=== PATIENT | male | born 1970 | race Two or more races ===

== ENCOUNTER 2020-04-11 10:19 | Emergency (ER) | payer OTHER ==
[2020-04-11] MEDS ORDERED: DIPHTH,PERTUSS(ACELL),TET 0.5 ML DISP.SYRIN IM ONE ×2 (10:42→11:13)
[2020-04-11 11:09] VITALS: BP 191/92; PULSE 55; TEMP 97.8; BMI 57.6
== END 2020-04-11 11:16 | disposition home or self-care (01) ==
LOC: JERFT 10:19
PROC: 3E0234Z Introduction of Serum, Toxoid and Vaccine into Muscle, Percutaneous Approach (ICD-10-PCS; principal; 2020-04-11)
DX: S62.511A Displaced fracture of proximal phalanx of right thumb, initial encounter for closed fracture (principal)
CPT/HCPCS: 73140-TC-RT-FY; 90715; 99284-25